=== PATIENT | female | born 1995 | race Caucasian/White ===

== ENCOUNTER 2021-05-06 10:16 | Emergency (ER) | payer BC ==
[2021-05-06] MEDS ORDERED: Sodium Chloride 0.9% 10 ML Syringe FLUSH PRN (11:02)
[2021-05-06] MEDS ORDERED: Sodium Chloride 0.9% 1,000 ML IV STA (11:05)
[2021-05-06] MEDS ORDERED: Ondansetron 4 MG/2 ML SDV IVPUSH ONE (11:05)
--- NOTE | 2021-05-06 12:00 | EDM.PDOC ---
ED HPI GENERAL MEDICAL PROBLEM - General Chief Complaint: Abdominal Pain Stated Complaint: R SIDE ABD PAIN Time Seen by Provider: 05/06/21 10:55 Source of Information: Reports: Patient, RN Notes Reviewed History Limitations: Reports: No Limitations - History of Present Illness INITIAL COMMENTS - FREE TEXT/NARRATIVE: Patient is a 25-year-old female G1, P0 4 to 5 weeks gestation presenting to the emergency department with complaints of acute onset of right lower quadrant abdominal pain. She reports that symptoms came on quite suddenly and gradually worsened in severity. Describes it as a sharp stabbing pain. She reports that it feels similar to when she has had ovarian cysts in the past. She had some vaginal bleeding on Sunday but states that it was very brief and resolved before she could be evaluated in the clinic. She is had no bleeding since that time. She does report some radiation into her low back as well as some mild back pain. She has not noticed any blood in her urine. She has had no fever or chills. States she did vomit this morning. She has had some mild nausea due to prior to this, however today was worse. She has no chronic medical conditions and denies any previous abdominal surgeries. She is on progesterone and vitamin. She was scheduled to have an early OB ultrasound at 11 today. Her BRICK POINTER's are Jillian Hernandez, SISI and Dr. Wilkerson. Abdominal Pain Score (Numeric/FACES): 10 - Related Data Allergies Allergy/AdvReac Type Severity Reaction Status Date / Time amoxicillin Allergy Rash Verified 05/06/21 10:26 Past Medical History HEENT History: Reports: Other (See Below) Other HEENT History: wisdom teeth - Past Surgical History GI Surgical History: Reports: Cholecystectomy Social & Family History - Tobacco Use Tobacco Use Status *Q: Never Tobacco User Second Hand Smoke Exposure: No - Caffeine Use Caffeine Use: Reports: None - Recreational Drug Use Recreational Drug Use: No ED ROS GENERAL - Review of Systems Review Of Systems: See Below Constitutional: Reports: No Symptoms HEENT: Reports: No Symptoms Respiratory: Reports: No Symptoms Cardiovascular: Reports: No Symptoms Endocrine: Reports: No Symptoms GI/Abdominal: Reports: Abdominal Pain (RLQ), Nausea, Vomiting. Denies: Diarrhea : Reports: No Symptoms Musculoskeletal: Reports: No Symptoms Skin: Reports: No Symptoms Neurological: Reports: No Symptoms Psychiatric: Reports: No Symptoms Hematologic/Lymphatic: Reports: No Symptoms Immunologic: Reports: No Symptoms ED EXAM, GI/ABD - Physical Exam Exam: See Below Exam Limited By: No Limitations General Appearance: Alert, WD/WN, No Apparent Distress Respiratory/Chest: No Respiratory Distress, Lungs Clear, Normal Breath Sounds, No Accessory Muscle Use, Chest Non-Tender Cardiovascular: Normal Peripheral Pulses, Regular Rate, Rhythm, No Edema, No Gallop, No JVD, No Murmur, No Rub GI/Abdominal Exam: Normal Bowel Sounds, Soft, No Organomegaly, No Distention, No Abnormal Bruit, No Mass, Pelvis Stable, Rebound (RLQ), Tender (RLQ). No: Guarding, Rigid Neurological: Alert, Oriented, CN II-XII Intact, Normal Cognition, Normal Gait, Normal Reflexes, No Motor/Sensory Deficits Psychiatric: Normal Affect, Normal Mood Skin Exam: Warm, Dry, Intact, Normal Color, No Rash Course - Vital Signs Last Recorded V/S: Last Vital Signs Temp 97.8 F 05/06/21 10:25 Pulse 85 05/06/21 10:25 Resp 20 05/06/21 10:25 BP 127/82 05/06/21 10:25 Pulse Ox 100 05/06/21 10:25 - Orders/Labs/Meds Orders: Active Orders 24 hr Category Date Time Status ANTIBODY IDENTIFICATION [BBK] Routine Lab 05/06/21 11:15 Results TYPE AND SCREEN [BBK] Routine Lab 05/06/21 11:15 Results Peripheral IV Insertion Adult [OM.PC] Stat Oth 05/06/21 11:01 Ordered Labs: Laboratory Tests 05/06/21 05/06/21 05/06/21 Range/Units 11:15 11:18 11:18 WBC 8.05 (3.98-10.04) K/mm3 RBC 4.27 (3.98-5.22) M/mm3 Hgb 13.3 (11.2-15.7) gm/dl Hct 38.5 (34.1-44.9) % MCV 90.2 (79.4-94.8) fl MCH 31.1 (25.6-32.2) pg MCHC 34.5 (32.2-35.5) g/dl RDW Std Deviation 40.9 (36.4-46.3) fL Plt Count 337 (182-369) K/mm3 MPV 8.8 L (9.4-12.3) fl Neut % (Auto) 79.9 H (34.0-71.1) % Lymph % (Auto) 11.2 L (19.3-51.7) % [place] % (Auto) 8.4 (4.7-12.5) % Eos % (Auto) 0.1 L (0.7-5.8) Baso % (Auto) 0.2 (0.1-1.2) % Neut # (Auto) 6.42 H (1.56-6.13) K/mm3 Lymph # (Auto) 0.90 L (1.18-3.74) K/mm3 [place] # (Auto) 0.68 H (0.24-0.36) K/mm3 Eos # (Auto) 0.01 L (0.04-0.36) K/mm3 Baso # (Auto) 0.02 (0.01-0.08) K/mm3 Sodium 140 (136-145) mEq/L Potassium 3.7 (3.5-5.1) mEq/L Chloride 105 (98-107) mEq/L Carbon Dioxide 22 (21-32) mEq/L Anion Gap 16.7 H (5-15) BUN 12 (7-18) mg/dL Creatinine 0.8 (0.55-1.02) mg/dL Est Cr Clr Drug Dosing 89.70 mL/min Estimated GFR (MDRD) > 60 (>60) mL/min BUN/Creatinine Ratio 15.0 (14-18) Glucose 109 H (70-99) mg/dL Calcium 8.9 (8.5-10.1) mg/dL Total Bilirubin 1.1 H (0.2-1.0) mg/dL AST 11 L (15-37) U/L ALT 25 (14-59) U/L Alkaline Phosphatase 47 (46-116) U/L C-Reactive Protein (<1.0) mg/dL Total Protein 7.5 (6.4-8.2) g/dl Albumin 4.0 (3.4-5.0) g/dl Globulin 3.5 gm/dL Albumin/Globulin Ratio 1.1 (1-2) HCG, Quant mIU/mL Urine Color (Yellow) Urine Appearance (Clear) Urine pH (5.0-8.0) Ur Specific [place] (1.005-1.030) Urine Protein (Negative) Urine Glucose (UA) (Negative) Urine Ketones (Negative) Urine Occult Blood (Negative) Urine Nitrite (Negative) Urine Bilirubin (Negative) Urine Urobilinogen (0.2-1.0) Ur Leukocyte Esterase (Negative) Urine RBC (0-5) /hpf Urine WBC (0-5) /hpf Ur Squamous Epith Cells (0-5) /hpf Urine Bacteria (FEW) /hpf Urine Mucus (FEW) /hpf Blood Type AB NEGATIVE Gel Antibody Screen Positive 05/06/21 05/06/21 05/06/21 Range/Units 11:18 11:18 11:29 WBC (3.98-10.04) K/mm3 RBC (3.98-5.22) M/mm3 Hgb (11.2-15.7) gm/dl Hct (34.1-44.9) % MCV (79.4-94.8) fl MCH (25.6-32.2) pg MCHC (32.2-35.5) g/dl RDW Std Deviation (36.4-46.3) fL Plt Count (182-369) K/mm3 MPV (9.4-12.3) fl Neut % (Auto) (34.0-71.1) % Lymph % (Auto) (19.3-51.7) % [place] % (Auto) (4.7-12.5) % Eos % (Auto) (0.7-5.8) Baso % (Auto) (0.1-1.2) % Neut # (Auto) (1.56-6.13) K/mm3 Lymph # (Auto) (1.18-3.74) K/mm3 [place] # (Auto) (0.24-0.36) K/mm3 Eos # (Auto) (0.04-0.36) K/mm3 Baso # (Auto) (0.01-0.08) K/mm3 Sodium (136-145) mEq/L Potassium (3.5-5.1) mEq/L Chloride (98-107) mEq/L Carbon Dioxide (21-32) mEq/L Anion Gap (5-15) BUN (7-18) mg/dL Creatinine (0.55-1.02) mg/dL Est Cr Clr Drug Dosing mL/min Estimated GFR (MDRD) (>60) mL/min BUN/Creatinine Ratio (14-18) Glucose (70-99) mg/dL Calcium (8.5-10.1) mg/dL Total Bilirubin (0.2-1.0) mg/dL AST (15-37) U/L ALT (14-59) U/L Alkaline Phosphatase (46-116) U/L C-Reactive Protein 2.3 H* (<1.0) mg/dL Total Protein (6.4-8.2) g/dl Albumin (3.4-5.0) g/dl Globulin gm/dL Albumin/Globulin Ratio (1-2) HCG, Quant 3342.0 mIU/mL Urine Color Yellow (Yellow) Urine Appearance Clear (Clear) Urine pH 7.0 (5.0-8.0) Ur Specific [place] 1.025 (1.005-1.030) Urine Protein Negative (Negative) Urine Glucose (UA) Negative (Negative) Urine Ketones 4+ H (Negative) Urine Occult Blood Negative (Negative) Urine Nitrite Negative (Negative) Urine Bilirubin Negative (Negative) Urine Urobilinogen 0.2 (0.2-1.0) Ur Leukocyte Esterase Negative (Negative) Urine RBC 0-5 (0-5) /hpf Urine WBC 0-5 (0-5) /hpf Ur Squamous Epith Cells 0-5 (0-5) /hpf Urine Bacteria Few (FEW) /hpf Urine Mucus Many H (FEW) /hpf Blood Type Gel Antibody Screen Meds: Medications Discontinued Medications Generic Name Dose Route Start Last Admin Trade Name Freq PRN Reason Stop Dose Admin Sodium Chloride 1,000 mls @ 999 mls/hr 05/06/21 11:05 05/06/21 11:21 Normal Saline IV 05/06/21 12:05 999 mls/hr NOW STA Administration Ondansetron HCl 4 mg 05/06/21 11:05 05/06/21 11:20 Ondansetron 4 Mg/2 Ml Sdv IVPUSH 05/06/21 11:06 4 mg ONETIME ONE Administration Sodium Chloride 10 ml 05/06/21 11:02 05/06/21 11:20 Sodium Chloride 0.9% 10 Ml Syringe FLUSH 10 ml ASDIRECTED PRN Administration Keep Vein Open - Re-Assessments/Exams Free Text/Narrative Re-Assessment/Exam: Patient is a 25-year-old female G1, P0 approximate 4 to 5 weeks gestation presenting to the emergency department with complaints of acute onset of right lower quadrant abdominal pain. Describes it as a sharp stabbing pain similar in sensation to when she had ovarian cysts. She did vomit with it this morning. She had no fever or chills. Denies any vaginal bleeding at this time but states she did have some mild vaginal bleeding on Sunday which her BRICK POINTER felt was related to intercourse. On exam. Patient does have diffuse right lower quadrant tenderness. She does as well have rebound tenderness. She has some mild right-sided CVA tenderness with states that she has been having back pain. Denies any blood in her urine. Exam is otherwise unremarkable. I have ordered blood work, urinalysis, ultrasound of the pelvis, right lower quadrant abdomen, and right kidney. I will give her 1 L bolus of saline as well as Zofran for nausea. She declined pain medications at this time. 05/06/21 13:09 Hematology significant for anion gap minimally elevated at 16.7, CRP 2.3. To day's hCG is 3342 which is unfortunately down from yesterday's value of 3439. Ultrasound of the abdomen showed a lymph node within the right lower abdomen. Appendix is not visualized. Right kidney is normal. Transvaginal OB ultrasound impression as follows: 1. Small gestational sac within the right adnexa compatible with ectopic . Measurements as noted above. 2. Pseudogestational sac within the endometrial cavity of the uterus. Case was discussed with BRICK POINTER on-call, Dr. Dawn. She will come in to visit with the patient about options for treatment. Patient was updated on these r esults. She denies the need for pain medications at this time. 05/06/21 14:30 Dr. Dawn was here to see patient. She will be going over to [facility] at [facility] for a methotrexate injection. Dr. Dawn did write discharge instructions for the patient. Departure - Departure Time of Disposition: 14:30 Disposition: Home, Self-Care 01 Condition: Good Clinical Impression: Ectopic Qualifiers: Location of ectopic : unspecified location Intrauterine status: without intrauterine Qualified Code(s): O00.90 - Unspecified ectopic without intrauterine - Discharge Information Instructions: Abdominal Pain, Adult, [id number] Referrals: Jillian Hernandez NP [Primary Care Provider] - Forms: ED Department Discharge Additional Instructions: Methotrexate administration for ectopic : The day you received your methotrexate is considered "Day 1". We will obtain a hormone level this day in addition to lab values to assess your kidney and liver function as well as your blood count. You need to return for another hormone level on "Day 4". This is May 09. You will be contacted with your result via [employer]. On "Day 7" you will need to have another hormone level lab draw. The date for this lab draw is May 12. You will be contacted with your results by phone. We expect to see a drop of 15% in your hormone level between Day 4 and Day 7. If this is the case we will then monitor your hormone levels weekly until they are undetectable. If your hormone level does not drop by 15% we may need to consider additional treatment including a second dose of methotrexate. If at any time you have questions about when you are supposed to have you labs drawn please call into the clinic and discuss with your doctor or his/her nurse. Sepsis Event Note (ED) - Evaluation Sepsis Screening Result: No Definite Risk - Focused Exam Vital Signs: Vital Signs Temp Pulse Resp BP Pulse Ox 05/06/21 10:25 97.8 F 85 20 127/82 100 - My Orders Last 24 Hours: My Active Orders 05/06/21 11:01 Peripheral IV Insertion Adult [OM.PC] Stat - Assessment/Plan Last 24 Hours: My Active Orders 05/06/21 11:01 Peripheral IV Insertion Adult [OM.PC] Stat
--- NOTE | 2021-05-06 12:49 | US ---
Right renal and right lower quadrant ultrasound: Multiple real-time images were obtained of the right kidney and right lower abdomen. Comparison: No previous renal or right lower quandrant ultrasound is available. Kidney shows no hydronephrosis or mass. Right kidney measures 10.8 cm in size. Right lower quadrant shows a lymph node. The appendix is not visualized. No free fluid is seen. Impression: 1. Appendix is not visualized. Lymph node is seen within the right lower abdomen. 2. Right kidney appears normal. Diagnostic code #1
--- NOTE | 2021-05-06 12:57 | US ---
First trimester obstetrical ultrasound: Multiple real-time images were obtained transvaginally. Comparison: No prior obstetrical imaging is available. Findings: There is a gestational sac being seen within the right adnexa superior to the right ovary. This finding measures 2.9 x 1.8 x 2.9 cm. Pseudo-gestational sac is noted within the uterus. Left ovary appears normal. Small corpus luteum cyst is seen within the right ovary. Impression: 1. Small gestational sac within the right adnexa compatible with ectopic . Measurements as noted above. 2. Pseudo-gestational sac within the endometrial cavity of the uterus. Diagnostic code #5
--- NOTE | 2021-05-06 13:51 | PCM.CONS ---
H&P History of Present Illness - General Date of Service: 05/06/21 Source of Information: Patient History Limitations: Reports: No Limitations - History of Present Illness Initial Comments - Free Text/Narative: Patient is a 25 y/o G1 woman at about 5 wks gestation in a conceived with Clomid who presented to ER with right sided abdominal pain. Had a slight drop in hCG value today as compared to previous values. US done and documents adnexal . Was consulted at that time. Patient currently tearful. Very heartbroken after working for a year to become to have this result. Rates pain as less than a 4/10. Has not required pain medication n ER. Has had hCG values this . 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 - Past Surgical History HEENT Surgical History: Reports: Oral Surgery (wisdom tooth extraction) GI Surgical History: Reports: Cholecystectomy Social & Family History - Tobacco Use Tobacco Use Status *Q: Never Tobacco User Second Hand Smoke Exposure: No - Caffeine Use Caffeine Use: Reports: None - Alcohol Use Alcohol Use History: No - Recreational Drug Use Recreational Drug Use: No H&P Review of Systems - Review of Systems: Review Of Systems: See Below General: Reports: No Symptoms Pulmonary: Reports: No Symptoms Cardiovascular: Reports: No Symptoms Gastrointestinal: Reports: Abdominal Pain, Nausea Genitourinary: Reports: No Symptoms Musculoskeletal: Reports: No Symptoms Neurological: Reports: No Symptoms Exam - Exam Exam: See Below - Vital Signs Vital Signs: Last Vital Signs Temp 36.6 C 05/06/21 10:25 Pulse 85 05/06/21 10:25 Resp 20 05/06/21 10:25 BP 127/82 05/06/21 10:25 Pulse Ox 100 05/06/21 10:25 Weight: 58.967 kg - Exam General: Alert, Oriented, Cooperative Lungs: Clear to Auscultation, Normal Respiratory Effort Cardiovascular: Regular Rate, Regular Rhythm GI/Abdominal Exam: Soft, Non-Tender (at time of examination), No Distention. No: Guarding, Rigid, Rebound (Female) Exam: Normal Bimanual Exam, Adnexal Tenderness (minimal on right ). No: Cervix Motion Tenderness - Patient Data Lab Results Last 24 hrs: Laboratory Results - last 24 hr 05/06/21 05/06/21 05/06/21 Range/Units 11:18 11:18 11:18 WBC 8.05 (3.98-10.04) K/mm3 RBC 4.27 (3.98-5.22) M/mm3 Hgb 13.3 (11.2-15.7) gm/dl Hct 38.5 (34.1-44.9) % MCV 90.2 (79.4-94.8) fl MCH 31.1 (25.6-32.2) pg MCHC 34.5 (32.2-35.5) g/dl RDW Std Deviation 40.9 (36.4-46.3) fL Plt Count 337 (182-369) K/mm3 MPV 8.8 L (9.4-12.3) fl Neut % (Auto) 79.9 H (34.0-71.1) % Lymph % (Auto) 11.2 L (19.3-51.7) % [place] % (Auto) 8.4 (4.7-12.5) % Eos % (Auto) 0.1 L (0.7-5.8) Baso % (Auto) 0.2 (0.1-1.2) % Neut # (Auto) 6.42 H (1.56-6.13) K/mm3 Lymph # (Auto) 0.90 L (1.18-3.74) K/mm3 [place] # (Auto) 0.68 H (0.24-0.36) K/mm3 Eos # (Auto) 0.01 L (0.04-0.36) K/mm3 Baso # (Auto) 0.02 (0.01-0.08) K/mm3 Sodium 140 (136-145) mEq/L Potassium 3.7 (3.5-5.1) mEq/L Chloride 105 (98-107) mEq/L Carbon Dioxide 22 (21-32) mEq/L Anion Gap 16.7 H (5-15) BUN 12 (7-18) mg/dL Creatinine 0.8 (0.55-1.02) mg/dL Est Cr Clr Drug Dosing 89.70 mL/min Estimated GFR (MDRD) > 60 (>60) mL/min BUN/Creatinine Ratio 15.0 (14-18) Glucose 109 H (70-99) mg/dL Calcium 8.9 (8.5-10.1) mg/dL Total Bilirubin 1.1 H (0.2-1.0) mg/dL AST 11 L (15-37) U/L ALT 25 (14-59) U/L Alkaline Phosphatase 47 (46-116) U/L C-Reactive Protein (<1.0) mg/dL Total Protein 7.5 (6.4-8.2) g/dl Albumin 4.0 (3.4-5.0) g/dl Globulin 3.5 gm/dL Albumin/Globulin Ratio 1.1 (1-2) HCG, Quant 3342.0 mIU/mL Urine Color (Yellow) Urine Appearance (Clear) Urine pH (5.0-8.0) Ur Specific [place] (1.005-1.030) Urine Protein (Negative) Urine Glucose (UA) (Negative) Urine Ketones (Negative) Urine Occult Blood (Negative) Urine Nitrite (Negative) Urine Bilirubin (Negative) Urine Urobilinogen (0.2-1.0) Ur Leukocyte Esterase (Negative) Urine RBC (0-5) /hpf Urine WBC (0-5) /hpf Ur Squamous Epith Cells (0-5) /hpf Urine Bacteria (FEW) /hpf Urine Mucus (FEW) /hpf 05/06/21 05/06/21 Range/Units 11:18 11:29 WBC (3.98-10.04) K/mm3 RBC (3.98-5.22) M/mm3 Hgb (11.2-15.7) gm/dl Hct (34.1-44.9) % MCV (79.4-94.8) fl MCH (25.6-32.2) pg MCHC (32.2-35.5) g/dl RDW Std Deviation (36.4-46.3) fL Plt Count (182-369) K/mm3 MPV (9.4-12.3) fl Neut % (Auto) (34.0-71.1) % Lymph % (Auto) (19.3-51.7) % [place] % (Auto) (4.7-12.5) % Eos % (Auto) (0.7-5.8) Baso % (Auto) (0.1-1.2) % Neut # (Auto) (1.56-6.13) K/mm3 Lymph # (Auto) (1.18-3.74) K/mm3 [place] # (Auto) (0.24-0.36) K/mm3 Eos # (Auto) (0.04-0.36) K/mm3 Baso # (Auto) (0.01-0.08) K/mm3 Sodium (136-145) mEq/L Potassium (3.5-5.1) mEq/L Chloride (98-107) mEq/L Carbon Dioxide (21-32) mEq/L Anion Gap (5-15) BUN (7-18) mg/dL Creatinine (0.55-1.02) mg/dL Est Cr Clr Drug Dosing mL/min Estimated GFR (MDRD) (>60) mL/min BUN/Creatinine Ratio (14-18) Glucose (70-99) mg/dL Calcium (8.5-10.1) mg/dL Total Bilirubin (0.2-1.0) mg/dL AST (15-37) U/L ALT (14-59) U/L Alkaline Phosphatase (46-116) U/L C-Reactive Protein 2.3 H* (<1.0) mg/dL Total Protein (6.4-8.2) g/dl Albumin (3.4-5.0) g/dl Globulin gm/dL Albumin/Globulin Ratio (1-2) HCG, Quant mIU/mL Urine Color Yellow (Yellow) Urine Appearance Clear (Clear) Urine pH 7.0 (5.0-8.0) Ur Specific [place] 1.025 (1.005-1.030) Urine Protein Negative (Negative) Urine Glucose (UA) Negative (Negative) Urine Ketones 4+ H (Negative) Urine Occult Blood Negative (Negative) Urine Nitrite Negative (Negative) Urine Bilirubin Negative (Negative) Urine Urobilinogen 0.2 (0.2-1.0) Ur Leukocyte Esterase Negative (Negative) Urine RBC 0-5 (0-5) /hpf Urine WBC 0-5 (0-5) /hpf Ur Squamous Epith Cells 0-5 (0-5) /hpf Urine Bacteria Few (FEW) /hpf Urine Mucus Many H (FEW) /hpf Result Diagrams: 05/06/21 11:18 05/06/21 11:18 Sepsis Event Note - Evaluation Sepsis Screening Result: No Definite Risk - Focused Exam Vital Signs: Vital Signs Temp Pulse Resp BP Pulse Ox 05/06/21 10:25 36.6 C 85 20 127/82 100 Consult PN Assessment/Plan Procedures: Procedures ASSAY OF GONADOTROPIN (FSH) (12/10/20) ASSAY OF GONADOTROPIN (LH) (12/10/20) ASSAY OF PROGESTERONE (05/03/21) ASSAY THYROID STIM HORMONE (11/03/20) BLOOD TYPING SEROLOGIC ABO (05/03/21) BLOOD TYPING SEROLOGIC RH(D) (05/03/21) CATHETER FOR HYSTEROGRAPHY (03/31/21) CHORIONIC GONADOTROPIN TEST (05/03/21) CHYLMD TRACH DNA AMP PROBE (08/31/20) CULTURE SCREEN ONLY (06/30/14) N.GONORRHOEAE DNA AMP PROB (08/31/20) RBC ANTIBODY SCREEN (05/03/21) ROUTINE VENIPUNCTURE (05/03/21) SMEAR WET M[place] SALINE/INK (08/31/20) TRANSVAGINAL US NON-OB (12/21/20) TRICHOMONAS ASSAY W/OPTIC (08/31/20) X-RAY FEMALE GENITAL TRACT (03/31/21) (1) Ectopic SNOMED Code(s): 82406401 Code(s): O00.90 - UNSPECIFIED ECTOPIC WITHOUT INTRAUTERINE Current Visit: Yes Qualifiers: Location of ectopic : unspecified location Intrauterine status: without intrauterine Qualified Code(s): O00.90 - Unspecified ectopic without intrauterine Problem List Initiated/Reviewed/Updated: Yes Plan: Reviewed findings of inappropriate change in hCG an US which showed an ectopic . Patient understandably saddened by this. Is concerned about potentially losing her fallopian tube with surgery and so would like a trial of medical therapy. Patient exam benign/no signs of rupture and is reliable for follow up. Did review potential for failed MTX therapy or rupture requiring surgery in future. If rupture this would obviously be emergent. She expressed understanding. 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 Called [facility] and able to have patient present for MTX today in about 1.5 hours. Today considered Day 1 of therapy. Will need hCG day 4 or SundayMay 09 and day 7 or May 12. Orders placed at [facility]. Rx for Amma for pain. Advised to stop vitamin. No use of ibuprofen. Strict precautions to return to the ER with worsening/evolving pain or any other concerns. Evita Dawn MD
== END 2021-05-06 14:40 | disposition home or self-care (01) ==
LOC: JD.ED 10:16
DX: O00.90 Unspecified ectopic pregnancy without intrauterine pregnancy (principal); Z3A.01 Less than 8 weeks gestation of pregnancy; Z88.0 Allergy status to penicillin
CPT/HCPCS: 36415; 76705; 76817; 80053; 81001; 84702; 85025; 86140; 86850; 86870; 86900; 86901; 96374; 99284; J2405; J7030

== ENCOUNTER 2022-10-08 08:57 | Inpatient (IN) | payer BC ==
[~2022-10-08 08:57] MED LIST: Bupivacaine 0.25% 10 ML SDV ONE; Lidocaine 1% 10 ML MDV ONE
[2022-10-08] MEDS ORDERED: Nalbuphine HCl 10 MG/ 1ML Amp IVPUSH PRN (09:09)
[2022-10-08] MEDS ORDERED: Sodium Chloride 0.9% 10 ML Syringe FLUSH PRN (09:09)
[2022-10-08] MEDS ORDERED: Calcium Carbonate 500 MG Tab.Chew PO PRN (09:09)
[2022-10-08] MEDS ORDERED: Ondansetron 4 MG/2 ML SDV IVPUSH PRN (09:09)
[2022-10-08] MEDS ORDERED: Oxytocin/Lactated Ringers 10 UNIT/1,000 ML BAG IV SCH ×2 (09:15)
[2022-10-08] MEDS ORDERED: Misoprostol 25 MCG (1/4 of 100 MCG) Tab VAG ONE (09:41)
[2022-10-08] MEDS: Lactated Ringers 1,000 ML IV SCH ×4 (10:07→19:30)
[2022-10-08] MEDS ORDERED: Bupivacaine/fentaNYL/NS 100 ML Bag EPIDUR PRN (12:20)
[2022-10-08] MEDS ORDERED: diphenhydrAMINE 50 MG/ML SDV IVPUSH PRN (12:20)
[2022-10-08] MEDS ORDERED: fentaNYL 100 MCG/2 ML SDV EPIDUR PRN (12:20)
[2022-10-08] MEDS ORDERED: ePHEDrine 50 MG/ML SDV IVPUSH PRN (12:20)
[2022-10-08] MEDS ORDERED: Sodium Chloride 0.9% 1,000 ML ONE (18:31)
[2022-10-08] MEDS ORDERED: Sodium Chloride 0.9% 10 ML Syringe FLUSH SCH (21:00)
[2022-10-08] MEDS ORDERED: Benzocaine/Menthol 20%-0.5% Spray 78 GM Cannister TOP PRN (21:39)
[2022-10-08] MEDS ORDERED: Ibuprofen 600 MG Tab PO PRN (21:39)
[2022-10-08] MEDS ORDERED: Witch Hazel Medicated Pads 40/Jar TOP PRN (21:39)
[2022-10-08] MEDS: Docusate Sodium 100 MG Cap PO PRN (23:19)
[2022-10-08] MEDS: Acetaminophen 325 MG Tab PO PRN (23:30)
[2022-10-09] MEDS: Prenatal Multivitamin with Calcium/Folic Acid/Iron Tab PO SCH (08:17)
[2022-10-09] MEDS: Acetaminophen 325 MG Tab PO PRN ×2 (10:18→21:00)
[2022-10-09] MEDS: Docusate Sodium 100 MG Cap PO PRN (11:33)
[2022-10-10] MEDS: Prenatal Multivitamin with Calcium/Folic Acid/Iron Tab PO SCH (08:35)
[2022-10-10] MEDS: Acetaminophen 325 MG Tab PO PRN (08:36)
== END 2022-10-10 12:46 | disposition home or self-care (01) | DRG 560 ==
LOC: JD.OB 08:57 → OBSVTOIN 20:57 → JD.OB 20:57
PROVIDERS: ADMIT Obstetrics & Gynecology; ATTEND Obstetrics & Gynecology
PROC: 10D07Z6 Extraction of Products of Conception, Vacuum, Via Natural or Artificial Opening (ICD-10-PCS; principal; 2022-10-08)
PROC: 10907ZC Drainage of Amniotic Fluid, Therapeutic from Products of Conception, Via Natural or Artificial Opening (ICD-10-PCS; 2022-10-08)
PROC: 10H07YZ Insertion of Other Device into Products of Conception, Via Natural or Artificial Opening (ICD-10-PCS; 2022-10-08)
PROC: 3E0R3BZ Introduction of Anesthetic Agent into Spinal Canal, Percutaneous Approach (ICD-10-PCS; 2022-10-08)
PROC: 0UQMXZZ Repair Vulva, External Approach (ICD-10-PCS; 2022-10-08)
DX: O26.899 Other specified pregnancy related conditions, unspecified trimester (principal); O76 Abnormality in fetal heart rate and rhythm complicating labor and delivery; O70.0 First degree perineal laceration during delivery; Z37.0 Single live birth; Z3A.40 40 weeks gestation of pregnancy; Z88.2 Allergy status to sulfonamides; Z88.1 Allergy status to other antibiotic agents; Z88.8 Allergy status to other drugs, medicaments and biological substances; Z90.49 Acquired absence of other specified parts of digestive tract; Z67.31 Type AB blood, Rh negative
CPT/HCPCS: 36415; 51702; 59025; 59409; 85025; 86592; A9270-GY; J2405; J2590; J3010; J3490; J7120